=== PATIENT | male | born 1930 | race Caucasian/White ===

== ENCOUNTER 2017-02-26 16:53 | Inpatient (IN) | payer OTHER ==
--- NOTE | 2017-02-26 17:02 | EDPHY ---
H & P Time Seen by Provider: 02/26/17 16:57 HPI/ROS: CHIEF COMPLAINT: Acute confusion HISTORY OF PRESENT ILLNESS: The patient is referred to the ED from [facility] for evaluation of acute confusion. The patient has been seen twice at the emergency department in [place] as part today. Initially he had confusion attributed to presumed dehydration. The patient was treated with IV fluids and discharged home. The patient returned this afternoon agitated, with reported history of hallucinations. Patient reportedly is not able to be discharged back to his intermediate. The patient himself is unable to provide much history secondary to dementia. History is obtained from reviewing records as well as discussions with the patient's family. The patient did have a history of pneumonia in January which was treated with inpatient hospitalization. He was transferred to a intermediate approximately 2 and half weeks ago. It appears that during his hospitalization he was having problems with sundowning and was started on Seroquel. Patient was evaluated earlier today had an unremarkable set of laboratory test an unremarkable urinalysis. [facility] was not able to perform a head CT scan refer the patient to the emergency department for further evaluation. In the ED, the patient denies acute pain. The patient has had a history of a chronic cough since his pneumonia. Family reports there has been no history of fever. There has been no history of fall or trauma. REVIEW OF SYSTEMS: A comprehensive 10 point review of systems is otherwise negative aside from elements mentioned in the history of present illness. Source: Patient Exam Limitations: No limitations - Medical/Surgical History Other PMH: Past medical history: Dementia, recent pneumonia, COPD - Family History Significant Family History: No pertinent family hx - Social History Smoking Status: Unknown if ever smoked - Physical Exam Exam: General Appearance: Elderly male, no acute distress Eyes: Pupils equal and round no pallor or injection ENT, Mouth: Dry mucous membranes Respiratory: There are no retractions, lungs are clear to auscultation Cardiovascular: Regular rate and rhythm Gastrointestinal: Abdomen is soft and nontender, no masses, bowel sounds normal Neurological: Alert and oriented x1, 5/5 strength noted all 4 extremities Skin: Warm and dry, no rashes Musculoskeletal: Frail musculature Extremities: symmetrical, full range of motion Constitutional: Initial Vital Signs Temperature (C) 36.7 C 02/26/17 17:09 Heart Rate 88 02/26/17 17:09 Respiratory Rate 16 02/26/17 17:09 Blood Pressure 177/81 H 02/26/17 17:09 O2 Sat (%) 85 L 02/26/17 17:09 O2 Delivery Mode Nasal Cannula O2 (L/minute) 2 Allergies/Adverse Reactions: No Known Allergies Allergy (Verified 02/26/17 17:06) Home Medications: Medication Instructions Recorded Dilantin 02/26/17 Lantus 100 UNITS/ML (*) 02/26/17 Losartan Potassium 02/26/17 Metformin HCl 02/26/17 Mirtazapine 02/26/17 Simvastatin 02/26/17 novoLOG 02/26/17 Medical Decision Making - Diagnostics EKG Interpretation: EKG: Complete interpretation has been separately recorded in the [email or web address] archive. Summary impression: Atrial fibrillation, rate 76, no ischemic changes noted Imaging: Imaging Impressions Head CT 02/26/17 17:32 Impression: Nothing acute identified in this atrophic brain. Final concordant results called and discussed with Josh Gavin, at 2016 18:11 General information for patients regarding this examination can be found at [email or web address]. If you have questions or comments about this report, please contact me at [phone] (hospital) or [phone] (cell). ED Course/Re-evaluation: I reviewed the patient's past medical records. He does have Dilantin listed as a medication. This appears to be subtherapeutic with an undetectable level. Given his history of acute confusion, a stat noncontrast head CT scan has been ordered. The patient is noted to have atrial fibrillation on his EKG. He is hemodynamically stable and afebrile. I did review the results of his lab testing performed as dose parking see a normal urinalysis. CBC and Chem 7 continued to be normal. His Dilantin level is undetectable. The etiology of the patient's altered mental status is somewhat uncertain. 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 Consultation was made with Dr. Maicol Zaldivar from the hospitalist service will admit the patient to the hospital this evening for further evaluation of his altered mental status. Differential Diagnosis: Differential diagnosis considered includes dementia, delirium, urinary tract infection, intracranial hemorrhage, medication side effect, Dilantin toxicity - Data Points Laboratory Results: Laboratory Results 02/26/17 17:10 02/26/17 17:10 02/26/17 02/26/17 02/26/17 17:10 17:10 17:10 WBC 8.35 10^3/uL 10^3/uL (3.80-9.50) RBC 3.98 10^6/uL L 10^6/uL (4.40-6.38) Hgb 11.2 g/dL L g/dL (13.7-17.5) Hct 34.2 % L % (40.0-51.0) MCV 85.9 fL fL (81.5-99.8) MCH 28.1 pg pg (27.9-34.1) MCHC 32.7 g/dL g/dL (32.4-36.7) RDW 13.9 % % (11.5-15.2) Plt Count 237 10^3/uL 10^3/uL (150-400) MPV 10.7 fL fL (8.7-11.7) Neut % (Auto) 61.7 % % (39.3-74.2) Lymph % (Auto) 28.5 % % (15.0-45.0) [place] % (Auto) 6.0 % % (4.5-13.0) Eos % (Auto) 3.0 % % (0.6-7.6) Baso % (Auto) 0.4 % % (0.3-1.7) Nucleat RBC Rel Count 0.0 % % (0.0-0.2) Absolute Neuts (auto) 5.16 10^3/uL 10^3/uL (1.70-6.50) Absolute Lymphs (auto) 2.38 10^3/uL 10^3/uL (1.00-3.00) Absolute Monos (auto) 0.50 10^3/uL 10^3/uL (0.30-0.80) Absolute Eos (auto) 0.25 10^3/uL 10^3/uL (0.03-0.40) Absolute Basos (auto) 0.03 10^3/uL 10^3/uL (0.02-0.10) Absolute Nucleated RBC 0.00 10^3/uL 10^3/uL (0-0.01) Immature Gran % 0.4 % % (0.0-1.1) Immature Gran # 0.03 10^3/uL 10^3/uL (0.00-0.10) Sodium 135 mEq/L mEq/L (134-144) Potassium 4.6 mEq/L mEq/L (3.5-5.2) Chloride 103 mEq/L mEq/L (97-110) Carbon Dioxide 23 mEq/l mEq/l (22-31) Anion Gap 9 mEq/L mEq/L (8-16) BUN 18 mg/dL mg/dL (7-23) Creatinine 0.6 mg/dL L mg/dL (0.7-1.3) Estimated GFR > 60 Glucose 320 mg/dL H mg/dL (70-100) Calcium 9.8 mg/dL mg/dL (8.5-10.4) Troponin I < 0.012 ng/mL ng/mL (0-0.034) Phenytoin 02/26/17 17:10 WBC RBC Hgb Hct MCV MCH MCHC RDW Plt Count MPV Neut % (Auto) Lymph % (Auto) [place] % (Auto) Eos % (Auto) Baso % (Auto) Nucleat RBC Rel Count Absolute Neuts (auto) Absolute Lymphs (auto) Absolute Monos (auto) Absolute Eos (auto) Absolute Basos (auto) Absolute Nucleated RBC Immature Gran % Immature Gran # Sodium Potassium Chloride Carbon Dioxide Anion Gap BUN Creatinine Estimated GFR Glucose Calcium Troponin I Phenytoin < 3.0 mcg/mL L mcg/mL (10.0-20.0) Departure - Departure Disposition: [facility] Acute Clinical Impression: Dementia, Acute confusion Condition: Fair
[2017-02-26 18:26] LABS: % IMMATURE GRANULYOCYTES 0.4 % (0.0-1.1); ABSOLUTE IMMATURE GRANULOCYTES 0.03 10^3/uL (0.00-0.10); ADD DIFF? NO; ADD MORPH? NO; ADD SCAN? NO; ATYPICAL LYMPHOCYTE FLAG 20 (0-99); FRAGMENT RBC FLAG 0 (0-99); HEMATOCRIT 34.2 % (40.0-51.0); HEMOGLOBIN 11.2 g/dL (13.7-17.5); LEFT SHIFT FLG 0 (0-99); LIPEMIA HEMOLYSIS FLAG 80 (0-99); MEAN CELL HEMOGLOBIN 28.1 pg (27.9-34.1); MEAN CELL HEMOGLOBIN CONCENTR. 32.7 g/dL (32.4-36.7); MEAN CELL VOLUME 85.9 fL (81.5-99.8); MEAN PLATELET VOLUME 10.7 fL (8.7-11.7); PLATELET CLUMPS FLAG 20 (0-99); PLATELET COUNT 237 10^3/uL (150-400); RED BLOOD CELL COUNT 3.98 10^6/uL (4.40-6.38); RED CELL DISTRIBUTION WIDTH 13.9 % (11.5-15.2)
[2017-02-26 18:34] LABS: ANION GAP 9 mEq/L (8-16); CALCIUM 9.8 mg/dL (8.5-10.4); CARBON DIOXIDE 23 mEq/l (22-31); CHLORIDE 103 mEq/L (97-110); CREATININE 0.6 mg/dL (0.7-1.3); GLOMERULAR FILTRATION RATE > 60; GLUCOSE 320 mg/dL (70-100); POTASSIUM 4.6 mEq/L (3.5-5.2); SODIUM 135 mEq/L (134-144)
--- NOTE | 2017-02-26 19:02 | CPEKG ---
Heart Rate: 76 RR Interval: 789 QRSD Interval: 76 QT Interval: 384 QTC Interval: 432 QRS [place]: 0 T Wave [place]: 31 EKG Severity - ABNORMAL ECG - EKG Impression: ATRIAL FLUTTER/FIBRILLATION, A-RATE 270 EKG Impression: LOW VOLTAGE IN FRONTAL LEADS Electronically Signed By: Josh Gavin 26-Feb-2017 19:21:10
[2017-02-26] MEDS ORDERED: ONDANSETRON DISINTEGRATING 4 MG TAB PO PRN (20:12)
[2017-02-26] MEDS: IPRATROPIUM/ALBUTEROL 3 ML DEYVIAL IH SCH (20:48)
--- NOTE | 2017-02-26 20:54 | GHP ---
[f rep st] HISTORY AND PHYSICAL DATE OF ADMISSION: 02/26/2017 CHIEF COMPLAINT: Altered mental status. HISTORY OF PRESENT ILLNESS: This is an 86-year-old man with a history of dementia who presents with altered mental status. Recent history notable for being treated for pneumonia in January in [facility]. He also just moved from [place] to [place] recently. Did not really have a diagnosis of a de mentia prior to that move; however, his and daughter note that he had significant day night rev ersal on arriving in [place]. He was also found to be hypoxic and placed on oxygen. As above, a dmitted to the hospital in mid January for about 5 days. Treated there for pneumonia as well as alter ed mental status. Discharged to a detention facility where his mental status had significantl y recovered. They have been altering the doses of his psychiatric medications to give him better sl eep and control his mood. Maybe yesterday afternoon he was noted to be more confused. He was taken to the emergency department this morning, was noted to be confused there, given IV fluids, and then discharged back to detention facility. Re-presented in the afternoon with the same complaint s. Given that CT scanner is down in [place], he was transferred to the emergency department here for further evaluation. In the emergency department here, he was noted to be quite dyspneic at one point, breathing about 30 times per minute. PAST MEDICAL/SURGICAL HISTORY: 1. Dementia. 2. AVM status post clipping in 1989. 3. Diabetes mellitus. 4. Paroxysmal atrial fibrillation on aspirin. 5. Relatively frequent falls about 1 per month. 6. History of prostate cancer. 7. COPD, reported. 8. Recent pneumonia as above. 9. Hypertension. MEDICATIONS: Please see medication reconciliation. ALLERGIES: No known drug allergies. FAMILY HISTORY: Parents were . SOCIAL HISTORY: He smoked for about 60 years but he has quit. He is currently living in [place] . He and his just moved from [place]. His daughter lives in [place]. REVIEW OF SYSTEMS: 10-point review of systems is conducted and is negative except for HPI. PHYSICAL EXAM: VITAL SIGNS: Blood pressure 165/77, heart rate 86, respiration rate between 16 and 30, saturating 94% on 2 L, initially 85% on room air. Temperature is 36.7. GENERAL: The patient i s a pleasant man who appears comfortable when I am seeing, however, somewhat confused. He is fiddli ng with some of the instruments that are attached to him. HEENT: Normocephalic, atraumatic. CARDI OVASCULAR: Irregularly irregular. There are no murmurs, rubs, or gallops. PULMONARY: Basilar crab catcher ckles right greater than left. ABDOMEN: Soft, nontender, nondistended. SKIN: No rash. : No F oley. NEUROLOGIC: Somewhat confused. He is fiddling and picking at things. He has a nonfocal exa m. He is moving all extremities. PSYCHIATRIC: Mildly anxious. LABS: CBC is normal. Basic metabolic panel is normal. Troponin is negative. Dilantin is less west n 3. DATA: 1. ECG, which I personally viewed and interpreted, shows him to be in A flutter. There is nothing overtly ischemic here. 2. Chest x-ray shows somewhat of a multifocal bibasilar pneumonia. He also has somewhat diffuse op acities. I am not sure if this represents an interstitial pattern or emphysema. 3. Head CT scan shows atrophy. IMPRESSION AND PLAN: This is an 86-year-old man with underlying dementia who presents with worsenin g confusion and likely pneumonia. 1. Acute on chronic encephalopathy: He is not at his baseline. He is confused and agitated at his group home today. I think that this is likely metabolic in nature, do not suspect stroke at this point. Will treat underlying metabolic issues and follow this closely. 2. Bibasilar pneumonia: I am concerned that he is aspirating given that this is a recurrent pneumo eliceo. He reportedly had a negative swallow study. However, I will ask for a re-evaluation. Will tr eat him with Invanz for presumed aspiration. Will draw blood cultures and follow his clinical cours e. 3. A flutter/fibrillation: He is currently mildly tachycardic but mostly rate controlled. His car diologist recommended aspirin for CVA prophylaxis. Will continue his aspirin and rate control medic ation. 4. History of chronic obstructive pulmonary disease. This is reported but not confirmed. I will g jovita him some nebulizers for now for bronchodilation. Will not start steroids given his underlying d ementia. 5. Hypertension: Continue his medications. 6. Code status is do not resuscitate. 7. Venous thromboembolism risk is moderate. I will give him Lovenox. /[id number]/MODL
[2017-02-26] MEDS: PRAVASTATIN SODIUM 40 MG TAB PO SCH (21:34)
[2017-02-26] MEDS: QUEtiapine FUMARATE 25 MG TAB PO SCH (21:34)
[2017-02-26] MEDS: lamoTRIgine 25 MG TAB PO SCH (21:34)
[2017-02-26] MEDS: MELATONIN 3 MG TAB PO SCH (21:34)
[2017-02-26] MEDS ORDERED: HALOPERIDOL LACT 5 MG/ML INJ IVP PRN (21:35)
[2017-02-26] MEDS: INSULIN GLARGINE 100 UNITS/ML SYRINGE SC SCH (21:47)
[2017-02-26] MEDS ORDERED: HALOPERIDOL LACT 5 MG/ML INJ IVP ONE (21:54)
[2017-02-27] MEDS: QUEtiapine FUMARATE 25 MG TAB PO SCH ×2 (00:09→17:31)
[2017-02-27] MEDS: ERTAPENEM 1 GM in NS 100 ML IV SCH ×2 (00:26→11:51)
[2017-02-27] MEDS: IPRATROPIUM/ALBUTEROL 3 ML DEYVIAL IH SCH ×3 (05:22→17:16)
[2017-02-27 05:27] LABS: % IMMATURE GRANULYOCYTES 0.4 % (0.0-1.1); ABSOLUTE IMMATURE GRANULOCYTES 0.04 10^3/uL (0.00-0.10); ADD DIFF? NO; ADD MORPH? NO; ADD SCAN? NO; ATYPICAL LYMPHOCYTE FLAG 20 (0-99); FRAGMENT RBC FLAG 0 (0-99); HEMATOCRIT 32.2 % (40.0-51.0); HEMOGLOBIN 10.6 g/dL (13.7-17.5); LEFT SHIFT FLG 0 (0-99); LIPEMIA HEMOLYSIS FLAG 80 (0-99); MEAN CELL HEMOGLOBIN CONCENTR. 32.9 g/dL (32.4-36.7); MEAN PLATELET VOLUME 10.5 fL (8.7-11.7); PLATELET CLUMPS FLAG 0 (0-99); PLATELET COUNT 199 10^3/uL (150-400); RED BLOOD CELL COUNT 3.66 10^6/uL (4.40-6.38); RED CELL DISTRIBUTION WIDTH 13.8 % (11.5-15.2)
[2017-02-27 05:59] LABS: ALANINE AMINOTRANSFERASE 43 IU/L (21-72); ALBUMIN 3.5 g/dL (3.5-5.0); ALKALINE PHOSPHATASE 58 IU/L (38-126); ANION GAP 9 mEq/L (8-16); ASPARTATE AMINOTRANSFERASE 36 IU/L (17-59); BILIRUBIN,TOTAL 0.8 mg/dL (0.1-1.4); CALCIUM 9.3 mg/dL (8.5-10.4); CARBON DIOXIDE 25 mEq/l (22-31); CHLORIDE 108 mEq/L (97-110); CREATININE 0.6 mg/dL (0.7-1.3); GLOMERULAR FILTRATION RATE > 60; GLUCOSE 156 mg/dL (70-100); POTASSIUM 4.5 mEq/L (3.5-5.2); SODIUM 142 mEq/L (134-144); TOTAL PROTEIN 6.4 g/dL (6.3-8.2)
[2017-02-27] MEDS: ACETAMINOPHEN 325 MG TAB PO PRN (07:52)
[2017-02-27] MEDS: ASPIRIN EC 81 MG TAB PO SCH (07:52)
[2017-02-27] MEDS: ENOXAPARIN 40 MG/0.4 ML SYR SC SCH (08:02)
[2017-02-27] MEDS: LOSARTAN POTASSIUM 25 MG TAB PO SCH (08:33)
[2017-02-27] MEDS: INSULIN LISPRO 100 UNIT/ML SC SCH ×3 (08:34→17:30)
--- NOTE | 2017-02-27 09:58 | HOSPPROG ---
Hospitalist Progress Note Assessment/Plan: patient is an 86 y/o male who was brought to the ER for AMS. He has an underlying diagnosis of dementia. Today is my first encounter with the patient , chart reviewed. *Acute on chronic encephalopathy * has underlying dementia * suspect the pna and his glucoses caused this * per the nursing staff, patient appears to 'sun down' * his and daughter both stated when he had pna and high glucoses, he became more confused *Bibasilar pneumonia/concern for aspiration * Invanz #2 * on 3.5 liters of O2 * to get a swallow evaluation * after drinking fluids today he had a bout of emesis *Leukocytosis * due to the above *Afib/Aflutter * rate control * on asa therapy *hx of COPD *dementia on Seroquel and Lamictal had a bad reaction to Aricept *anemia * follow *hyperglycemia/Diabetes * insulin * not on sliding scale, but scheduled insulin * will have glucoses checked qAC and qHS to monitor for stability *Plan: reviewed his care with his daughter and his , Alejandrina. His dementia worsened this year once he moved from [place] to [place]. He has had some behavioral issues with his dementia that had been well controlled w Seroquel ( he takes it with dinner and this will be changed). Per nursing staff, he was agitated last night and did poss improve with the Haldol. The and daughter are fine with use of this medication/ in addition, spoke with them about using Zyprexa only if needed/ they are fine with this. Reviewed black box warning of increase risk of with use of Haldol and/or Zyprexa. They are fine with this. Subjective: Obdulio has no complaints. Objective: Vital Signs Temp Pulse Resp BP Pulse Ox 36.6 C 96 18 152/83 H 91 L 02/27/17 07:23 02/27/17 07:23 02/27/17 07:23 02/27/17 07:23 02/27/17 07:23 Laboratory Results 02/27/17 05:10 02/27/17 05:10 02/26/17 02/27/17 02/28/17 05:59 05:59 05:59 Intake Total 50 Output Total 700 300 Balance -650 -300 - Physical Exam Constitutional: no apparent distress, appears nourished, not in pain Eyes: PERRL Ears, Nose, Mouth, Throat: hearing normal Cardiovascular: regular rate and rhythym Respiratory: no respiratory distress, reduced air movement (bibasilar), other ( few crackles in the bases) Gastrointestinal: normoactive bowel sounds Skin: warm Musculoskeletal: no muscle tenderness Neurologic: other (alert and oriented to himself and where he is, not to year, doesn't know his or daughter's names) Psychiatric: interacting appropriately, poor insight, poor judgement, poor memory ICD10 Worksheet Patient Problems: Problems Problem Status Onset Acute confusion Acute Dementia Acute
[2017-02-27] MEDS: TIOTROPIUM INHALER 18 MCG/DOSE 5 DOSE/MDI IH SCH (10:10)
[2017-02-27] MEDS: lamoTRIgine 25 MG TAB PO SCH (20:45)
[2017-02-27] MEDS: PRAVASTATIN SODIUM 40 MG TAB PO SCH (20:45)
[2017-02-27] MEDS: MELATONIN 3 MG TAB PO SCH (20:45)
[2017-02-27] MEDS: INSULIN GLARGINE 100 UNITS/ML SYRINGE SC SCH (20:45)
[2017-02-28] MEDS: IPRATROPIUM/ALBUTEROL 3 ML DEYVIAL IH SCH ×4 (00:32→17:35)
[2017-02-28] MEDS: TIOTROPIUM INHALER 18 MCG/DOSE 5 DOSE/MDI IH SCH (08:55)
[2017-02-28] MEDS: LOSARTAN POTASSIUM 25 MG TAB PO SCH (09:20)
[2017-02-28] MEDS: ERTAPENEM 1 GM in NS 100 ML IV SCH (09:20)
[2017-02-28] MEDS: INSULIN LISPRO 100 UNIT/ML SC SCH ×3 (09:20→17:13)
[2017-02-28] MEDS: ASPIRIN EC 81 MG TAB PO SCH (09:20)
[2017-02-28] MEDS: ENOXAPARIN 40 MG/0.4 ML SYR SC SCH (09:21)
[2017-02-28] MEDS ORDERED: D50W 25 GM/50 ML SYR IVP PRN (12:06)
--- NOTE | 2017-02-28 12:11 | HOSPPROG ---
Hospitalist Progress Note Assessment/Plan: patient is an 86 y/o male who was brought to the ER for AMS. He has an underlying diagnosis of dementia. *Acute on chronic encephalopathy * has underlying dementia * per the nursing staff, patient appears to 'sun down' * his and daughter both stated when he had pna and high glucoses, he became more confused *Bibasilar pneumonia * Invanz #3 * oxygen levels on room air are improving * reviewed his care w ST/ she did not note any aspiration *Leukocytosis * due to the above *Afib/Aflutter * rate control * on asa therapy *hx of COPD *dementia on Seroquel and Lamictal had a bad reaction to Aricept *anemia * follow *hyperglycemia/Diabetes * insulin * uncontrolled/ dc'd his home insulin coverage/ changed to our sliding scale, increased dose of Lantus from 12 to 15 *Plan: need to discuss w CM about placement/ patient is much calmer and cooperative Subjective: Obdulio is asleep during my evaluation. Objective: Vital Signs Temp Pulse Resp BP Pulse Ox 36.4 C 71 16 151/91 H 93 02/28/17 07:50 02/28/17 08:56 02/28/17 08:56 02/28/17 07:50 02/28/17 08:56 - Physical Exam Constitutional: no apparent distress Cardiovascular: regular rate and rhythym Respiratory: no respiratory distress, reduced air movement (bibasilar but CTA) Gastrointestinal: normoactive bowel sounds Skin: warm Neurologic: other (asleep) ICD10 Worksheet Patient Problems: Problems Problem Status Onset Acute confusion Acute Dementia Acute
[2017-02-28] MEDS: ACETAMINOPHEN 325 MG TAB PO PRN (14:39)
[2017-02-28] MEDS: QUEtiapine FUMARATE 25 MG TAB PO SCH (17:28)
[2017-02-28] MEDS: INSULIN GLARGINE 100 UNITS/ML SYRINGE SC SCH (22:04)
[2017-02-28] MEDS: PRAVASTATIN SODIUM 40 MG TAB PO SCH ×2 (22:05→22:12)
[2017-02-28] MEDS: MELATONIN 3 MG TAB PO SCH ×2 (22:05→22:11)
[2017-02-28] MEDS: lamoTRIgine 25 MG TAB PO SCH ×2 (22:05→22:11)
[2017-03-01] MEDS: IPRATROPIUM/ALBUTEROL 3 ML DEYVIAL IH SCH ×4 (00:21→17:57)
[2017-03-01] MEDS: ACETAMINOPHEN 325 MG TAB PO PRN ×2 (03:51→11:35)
[2017-03-01 05:12] LABS: % IMMATURE GRANULYOCYTES 0.4 % (0.0-1.1); ABSOLUTE IMMATURE GRANULOCYTES 0.04 10^3/uL (0.00-0.10); ADD DIFF? NO; ADD MORPH? NO; ADD SCAN? NO; ATYPICAL LYMPHOCYTE FLAG 10 (0-99); FRAGMENT RBC FLAG 30 (0-99); HEMATOCRIT 32.6 % (40.0-51.0); HEMOGLOBIN 10.4 g/dL (13.7-17.5); LEFT SHIFT FLG 0 (0-99); LIPEMIA HEMOLYSIS FLAG 80 (0-99); MEAN CELL HEMOGLOBIN CONCENTR. 31.9 g/dL (32.4-36.7); MEAN CELL VOLUME 87.9 fL (81.5-99.8); MEAN PLATELET VOLUME 10.6 fL (8.7-11.7); PLATELET CLUMPS FLAG 0 (0-99); PLATELET COUNT 215 10^3/uL (150-400); RED BLOOD CELL COUNT 3.71 10^6/uL (4.40-6.38); RED CELL DISTRIBUTION WIDTH 14.2 % (11.5-15.2)
[2017-03-01 05:32] LABS: ANION GAP 6 mEq/L (8-16); CALCIUM 9.3 mg/dL (8.5-10.4); CARBON DIOXIDE 24 mEq/l (22-31); CHLORIDE 107 mEq/L (97-110); CREATININE 0.6 mg/dL (0.7-1.3); GLOMERULAR FILTRATION RATE > 60; GLUCOSE 201 mg/dL (70-100); POTASSIUM 4.3 mEq/L (3.5-5.2); SODIUM 137 mEq/L (134-144)
[2017-03-01] MEDS: ENOXAPARIN 40 MG/0.4 ML SYR SC SCH (08:22)
[2017-03-01] MEDS: LOSARTAN POTASSIUM 25 MG TAB PO SCH (08:23)
[2017-03-01] MEDS: ASPIRIN EC 81 MG TAB PO SCH (08:23)
[2017-03-01] MEDS: ERTAPENEM 1 GM in NS 100 ML IV SCH (08:23)
[2017-03-01] MEDS: INSULIN LISPRO 100 UNIT/ML SC SCH ×3 (08:29→17:39)
[2017-03-01] MEDS: TIOTROPIUM INHALER 18 MCG/DOSE 5 DOSE/MDI IH SCH (10:38)
--- NOTE | 2017-03-01 13:51 | HOSPPROG ---
Hospitalist Progress Note Assessment/Plan: patient is an 86 y/o male who was brought to the ER for AMS. He has an underlying diagnosis of dementia. This is my first encounter with the patient. Chart reviewed. All medication reviewed with family at bedside. *Acute on chronic encephalopathy * has underlying dementia * per the nursing staff, patient appears to 'sun down' * his and daughter both stated when he had pna and high glucoses, he became more confused *Bibasilar pneumonia * Invanz #4 * oxygen levels on room air are improving * reviewed his care w ST/ she did not note any aspiration *Leukocytosis * due to the above *Afib/Aflutter * rate control * on asa therapy *hx of COPD *dementia on Seroquel and Lamictal had a bad reaction to Aricept no med changes *anemia * follow *hyperglycemia/Diabetes * insulin * uncontrolled/ dc'd his home insulin coverage/ changed to our sliding scale, increased dose of Lantus from 12 to 15 *Plan: discuss w CM about placement/ patient is much calmer and cooperative Will plan to DC to [facility] when able. Subjective: Up in chair. Resting. Family at bedside. Objective: Vital Signs Temp Pulse Resp BP Pulse Ox 36.6 C 80 20 136/63 H 90 L 03/01/17 07:33 03/01/17 07:33 03/01/17 07:33 03/01/17 07:33 03/01/17 07:33 Laboratory Results 03/01/17 04:37 03/01/17 04:37 02/28/17 03/01/17 03/02/17 05:59 05:59 05:59 Intake Total 200 420 Output Total 150 Balance 50 420 - Physical Exam Constitutional: no apparent distress, not in pain, chronically ill appearing Eyes: PERRL, anicteric sclera, EOMI Ears, Nose, Mouth, Throat: moist mucous membranes, hearing normal, ears appear normal Cardiovascular: regular rate and rhythym, No JVD, No edema Respiratory: no respiratory distress, no rales or rhonchi, reduced air movement Gastrointestinal: normoactive bowel sounds, No tenderness, No ascites Skin: warm, normal color, No erythema Musculoskeletal: normal joint ROM, no joint effusions, generalized weakness Neurologic: No AAOx3 Psychiatric: not anxious, flat affect, poor memory, No thought process linear ICD10 Worksheet Patient Problems: Problems Problem Status Onset Dementia Acute Acute confusion Acute
[2017-03-01] MEDS: QUEtiapine FUMARATE 25 MG TAB PO SCH (17:30)
[2017-03-01] MEDS: MELATONIN 3 MG TAB PO SCH (21:00)
[2017-03-01] MEDS: lamoTRIgine 25 MG TAB PO SCH (21:01)
[2017-03-01] MEDS: PRAVASTATIN SODIUM 40 MG TAB PO SCH (21:01)
[2017-03-01] MEDS: INSULIN GLARGINE 100 UNITS/ML SYRINGE SC SCH (21:06)
[2017-03-02] MEDS: IPRATROPIUM/ALBUTEROL 3 ML DEYVIAL IH SCH ×3 (00:52→11:34)
[2017-03-02 08:24] VITALS: BP 131/58; PULSE 87; RESP 20; TEMP 97.7; O2SAT 90
[2017-03-02] MEDS: INSULIN LISPRO 100 UNIT/ML SC SCH (09:23)
[2017-03-02] MEDS ORDERED: LACTULOSE 20 GM/30 ML UDCUP PO PRN (09:40)
[2017-03-02] MEDS ORDERED: BISACODYL 10 MG SUPP PR PRN (09:40)
[2017-03-02] MEDS ORDERED: POLYETHYLENE GLYCOL 3350 17 GM PKT PO PRN (09:40)
[2017-03-02] MEDS ORDERED: MAGNESIUM HYDROXIDE 30 ML UDCUP PO PRN (09:40)
--- NOTE | 2017-03-02 09:42 | PDIAF ---
- Diagnosis Diagnosis: aspiration pneumonia Code Status: Do Not Resuscitate - Medication Management Discharge Medications: Medications to Continue on Transfer Aspirin EC [Aspirin EC 81 mg (*)] 81 mg PO DAILY 02/26/17 [Last Taken 02/26/17 09:00] Cholecalciferol Vit D3 [Vitamin D3 (*)] 2,000 units PO DAILY 02/26/17 [Last Taken 02/26/17 09:00] Herbals/Supplements -Info Only 1 ea PO DAILY 02/26/17 [Last Taken 02/26/17 09:00 ] Insulin Glargine [Lantus 100 UNITS/ML (*)] 12 units SC HS 02/26/17 [Last Taken 02/25/17 21:00] Losartan Potassium [Cozaar 25 mg (*)] 25 mg PO DAILY 02/26/17 [Last Taken 09:00] Melatonin [Melatonin 3 MG (*)] 3 mg PO HS 02/26/17 [Last Taken 02/25/17 21:00] Pravastatin Sodium 40 mg PO HS 02/26/17 [Last Taken 02/25/17 21:00] QUEtiapine FUMARATE [Seroquel 25 mg (*)] 25 mg PO HS 02/26/17 [Last Taken 21:00] Tiotropium Inhaler [Spiriva Inhaler (RX)] 1 inh IH DAILY 02/26/17 [Last Taken 09:00] Vitamin B Complex [B Complex] 1 tab PO DAILY 02/26/17 [Last Taken 02/26/17 09:00 ] lamoTRIgine [LaMICtal] 75 mg PO HS 02/26/17 [Last Taken 02/25/17 21:00] metFORMIN HCL [Glucophage 500 mg (*)] 1,000 mg PO BIDMEAL 02/26/17 [Last Taken 02/26/17 09:00] Acetaminophen [Tylenol 325mg (*)] 650 mg PO Q4HRS PRN #0 tab 03/02/17 [Last Taken Unknown] Amoxicillin/Clavulanate Pot [Augmentin 875 MG TAB (*)] 875 mg PO BID #8 tab [Last Taken Unknown] Insulin Lispro [humALOG LISPRO 100 units/ml (*)] 0 unit SC TIDMEAL #0 unit 03/02 [Last Taken Unknown] Ipratropium/Albuterol [Duoneb (*)] 3 ml IH Q6HRS #0 deyvial 03/02/17 [Last Taken Unknown] Discharge Medications: Refer to the Discharge Home Medication list for PRN reason. PICC Care - Routine: N/A - Orders Services needed: Registered Nurse, Physical Therapy, Occupational Therapy - Follow Up Care Current Providers and Referrals: Patient,NotPresent [Unknown] - As per Instructions
[2017-03-02] MEDS: ASPIRIN EC 81 MG TAB PO SCH (10:16)
[2017-03-02] MEDS: ENOXAPARIN 40 MG/0.4 ML SYR SC SCH (10:16)
[2017-03-02] MEDS: ERTAPENEM 1 GM in NS 100 ML IV SCH (10:16)
[2017-03-02] MEDS: LOSARTAN POTASSIUM 25 MG TAB PO SCH (10:16)
[2017-03-02] MEDS: TIOTROPIUM INHALER 18 MCG/DOSE 5 DOSE/MDI IH SCH (10:21)
[2017-03-02] MEDS ORDERED: SENNOSIDES/DOCUSATE SODIUM TAB PO SCH (10:30)
--- NOTE | 2017-03-02 15:20 | GDS ---
[f rep st] DISCHARGE SUMMARY DISCHARGE DIAGNOSES: 1. Acute on chronic encephalopathy. 2. Bibasilar pneumonia. 3. Leukocytosis. 4. History of atrial fibrillation with atrial flutter. 5. History of chronic obstructive pulmonary disease. 6. Dementia. 7. Anemia. 8. Diabetes with hyperglycemia. PHYSICAL EXAM: GENERAL: The patient is alert. VITAL SIGNS: Afebrile at 36.5. Pulse is 87. Resp iratory rate is 20. Blood pressure is 131/58. He is saturating 90% on room air. I have seen and e valuated the patient on the day of discharge. HOSPITAL COURSE: The patient is an 86-year-old male who presented to the emergency room with altere d mental status. He was evaluated and diagnosed with: 1. Bibasilar pneumonia. During this hospitalization, he received evaluation from speech therapy wi th no indication of aspiration. However, the patient is being treated with IV Invanz and will be tr ansitioned to Augmentin at the time of disposition. His condition is improving. 2. Acute hypoxemic respiratory failure. The patient's condition is improving secondary to the reso lution of his pneumonia. 3. Acute on chronic encephalopathy. His mentation has improved; and per his family, he is close to his baseline. 4. Chronic dementia. The patient does appear to be close to his baseline mentation at the time of disposition. 5. Leukocytosis. This is secondary to the patient's acute infectious process. 6. History of atrial fibrillation with flutter. This is rate controlled and is on aspirin therapy with no further therapy warranted at this time. 7. Anemia. This appears to be stable. 8. Diabetes. His Lantus has been increased during this hospitalization and [facility]. DISPOSITION: The patient will be discharged to [facility] for further rehabilitation and management. His family is in agreement with this plan. Followup will be with his primary care provider in 1 week. DISCHARGE MEDICATIONS: Please refer to EMR form. I have adjusted the patient's previously prescrib ed Lantus, but I have not adjusted his other medications to the best of my knowledge. I spent greater than 35 minutes in the care, coordination, and management of the patient's dispositi on. /[id number]/MODL
== END 2017-03-02 11:46 | DRG 193 ==
LOC: INTOOBSV 18:36 → F3E 20:21 → OBSVTOIN 02-27 15:52
PROVIDERS: ADMIT Student in an Organized Health Care Education/Training Program; ATTEND Student in an Organized Health Care Education/Training Program
DX: J18.9 Pneumonia, unspecified organism (principal); G93.49 Other encephalopathy; I48.92 Unspecified atrial flutter; I48.91 Unspecified atrial fibrillation; J44.9 Chronic obstructive pulmonary disease, unspecified; D64.9 Anemia, unspecified; F03.90 Unspecified dementia, unspecified severity, without behavioral disturbance, psychotic disturbance, mood disturbance, and anxiety; E11.65 Type 2 diabetes mellitus with hyperglycemia; Z66 Do not resuscitate
CPT/HCPCS: 92610-GN; 97116-GP; 97162-GP; 97166-GO; 97535-GO; G0378; G8978-GP-CK; G8979-GP-CI; G8987-GO-CK; G8988-GO-CJ; G8996-GN-CI; G8997-GN-CI; J1335; J1650; J1815